=== PATIENT | female | born 1945 | race Caucasian/White ===

== ENCOUNTER 2019-03-13 09:53 | Emergency (ER) | payer OTHER ==
[2019-03-13] MEDS ORDERED: DIPH,PERTUSS(ACELL),TET VAC/PF 0.5 ML DISP.SYRIN IM ONE (10:00)
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
[2019-03-13] MEDS ORDERED: fentaNYL CITRATE/PF 100 MCG/2 ML INJ. IM ONE (10:13)
[2019-03-13 11:56] VITALS: BP 142/74
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
== END 2019-03-13 11:36 | disposition home or self-care (01) ==
LOC: ED 09:53
DX: S60.221A Contusion of right hand, initial encounter (principal); S80.811A Abrasion, right lower leg, initial encounter; S80.812A Abrasion, left lower leg, initial encounter; V43.53XA Car driver injured in collision with pick-up truck in traffic accident, initial encounter
CPT/HCPCS: 73130; 90471; 90715; 96372; 99284; J3010